=== PATIENT | female | born 1935 | race Caucasian/White ===

== ENCOUNTER 2018-01-11 12:33 | Inpatient (IN) | payer MEDICARE, MEDICAID ==
[~2018-01-11] VITALS: Ht 167.6 cm; Wt 95.5 kg
--- NOTE | ~2018-01-11 | PR ---
[place], [place] PROGRESS NOTE [facility] [id number] UNIT #: [id number] ROOM: 421 DOCTOR: MARÍA CHILD MD BIRTHDATE: [birth year] DOS: 01/13/2018 SUBJECTIVE: The patient is sitting up in bed, leaning over, appears quite tired and weak, states that she is lazy this morning. OBJECTIVE: VITAL SIGNS: Pressure is 92/54, pulse of 60, respirations 16, temperature 97.5. LUNGS: Diminished breath sounds. No wheezes, rales or rhonchi heard this morning. HEART: Regular with a systolic murmur heard pretty loud in the second space. EXTREMITIES: Without any edema. ASSESSMENT AND PLAN: 1. Congestive heart failure, acute systolic from severe left ventricular dysfunction, ejection fraction 30%. The patient is already on low dose Coreg. We will avoid lisinopril because of her renal insufficiency. 2. Severe aortic stenosis. The patient has known history of aortic stenosis, was not an operative candidate 4 years ago. Discussed with the patient's daughter and they are aware of the inoperable state, so hospice will be consulted for this patient because her overall prognosis remains poor and guarded. 3. Acute renal failure with worsening of the kidney functions on diuretics and lack of urine output is concerning. She has an indwelling Moise catheter. Renal consult was obtained. Her ultrasound was ordered, but since because of the comorbidities, the patient is no longer a candidate for surgery and I would [facility]. Social service has been consulted for hospice. MARÍA CHILD MD CM:PNTRANS [phone] MARÍA CHILD MD 01/13/18 0930 interface
--- NOTE | ~2018-01-11 | DS ---
[place], [place] DISCHARGE SUMMARY [id number] UNIT #: [id number] ROOM: 421 DOCTOR: MARÍA CHILD MD BIRTHDATE: [birth year] DOS: 01/14/2018 DIAGNOSES: 1. Acute systolic congestive heart failure. 2. Left ventricular dysfunction, ejection fraction 30%. 3. Severe aortic stenosis, inoperable. 4. Adult failure to thrive. 5. Alzheimer dementia, late onset. 6. Benign hypertension. 7. Mixed hyperlipidemia. 8. Postmenopausal osteoporosis. 9. Sepsis pattern, which is ruled out with negative blood cultures. HOSPITAL COURSE: This patient is 82 years old, presents with complaints of shortness of breath and the family stated that the patient was getting more and more confused and felt that she might have a UTI, so she was seen in the Emergency Room. Lactic acid was elevated. White cell count was normal. She did not have any fever. The patient was admitted with sepsis pattern. Blood cultures and urine cultures were ordered. Urine analysis negative, so no reflux. Blood culture was sent. CT of the chest showed congestive heart failure rather than a pneumonia pattern. An echocardiogram showed severe aortic stenosis and LV dysfunction of 30%, which is much worse from an echo done 4 years ago. The patient also developed acute kidney injury and she already has chronic kidney disease. Condition was discussed with the family members and it was decided that she be kept on hospice at the residential. The patient was discharged to [facility] today with hospice. Condition was discussed with the patient's daughter in detail. MARÍA CHILD MD CM:DISCHARG [phone] MARÍA CHILD MD 01/14/18 1410 interface
--- NOTE | ~2018-01-11 | WRIGHTHP ---
[place], [place] PATIENT HISTORY AND PHYSICAL EXAM NAME: ZEESHAN BOSS [facility] #: [id number] UNIT #: [id number] ROOM: 421 DOCTOR: MARÍA CHILD MD BIRTHDATE: [birth year] DOS: 01/11/2018 HISTORY OF PRESENT ILLNESS: The patient is 82-year-old, a resident of [facility], who was brought into the Emergency Room with complaints of change in mental status. As per the family, the patient has been more confused and has not been eating or drinking well. The patient denies having any chest pains or palpitations, does not have any fever or chills, does not have any abdominal pain. This morning, she is a little nauseous and did not want to order any food. PAST MEDICAL HISTORY: Significant for: 1. Alzheimer's dementia, late onset. 2. Adult failure to thrive. 3. Chronic UTIs, the last hospitalization was February 2014. 4. Benign hypertension. 5. Aortic stenosis. 6. Mixed hyperlipidemia. MEDICATIONS: She is on alendronate 70 once weekly, Eliquis 2.5 mg twice a day, digoxin 0.125 daily, Os-Loc with vitamin D 500 mg t.i.d., Colace 100 mg daily, Aricept 10 mg daily, oxybutynin 10 mg at bedtime. SOCIAL HISTORY: Nonsmoker, does not use any alcohol. Lives in a correction. PHYSICAL EXAMINATION: GENERAL: She is awake and alert, not oriented to time, place or person. She did not recognize me. VITAL SIGNS: Graphic trend shows blood pressure of 132/70, pulse of 80, respirations 14, afebrile. LUNGS: Clear. HEART: Regular. ABDOMEN: Obese, soft, nontender. EXTREMITIES: Trace edema bilaterally, some discoloration of both her feet, dusky in nature. ASSESSMENT AND PLAN: 1. The patient comes in with confusion, possibly from underlying urinary tract infection. Urine culture will be sent. IV antibiotics started. 2. Chronic kidney disease. The patient is on 2 different diuretics. We will hold off on diuretics for right now. Slow IV hydration was ordered. 3. Chest x-ray showing evidence of diffuse pulmonary vascular congestion with BNP of 68,000, so the fluids were held. We will do a CT of the chest to figure out whether this indeed is congestive heart failure. 4. Alzheimer's dementia, late onset. Continue medications. 5. History of atrial fibrillation, on anticoagulants, which is also continued. [place], [place] PATIENT HISTORY AND PHYSICAL EXAM NAME: ZEESHAN BOSS UNIT #: [id number] ROOM: [facility] DOCTOR: MARÍA CHILD MD BIRTHDATE: [birth year] MARÍA CHILD MD CM:HISPHYS:PATIENT HISTORY AND PHYSICAL EXAMINATION 0 MARÍA CHILD MD 01/12/1819 interface
--- NOTE | ~2018-01-11 | PR ---
[place], [place] PROGRESS NOTE [id number] UN[facility] #: [id number] ROOM: 421 DOCTOR: MARÍA CHILD MD BIRTHDATE: [birth year] DOS: 01/14/2018 SUBJECTIVE: The patient looks tired and weak, does open her eyes to call, but easily slips back into sleep. OBJECTIVE: VITAL SIGNS: Blood pressure is 99/71, pulse of 75, respirations 20, temperature 97.6. LUNGS: Diminished breath sounds. HEART: Regular. ABDOMEN: Obese. EXTREMITIES: Trace edema bilaterally. LABORATORY DATA: Digoxin was 1.76. Chest x-ray shows improvement in the CHF, but small pleural effusion seen. This was clearly not pneumonia and more of CHF pattern. CT of the abdomen and pelvis was negative except for evidence of volume overload. Ultrasound of the abdomen did show mass-like lesion in the right lower lobe, which is not described on a CT scan. Blood cultures were no bacterial growth. ASSESSMENT AND PLAN: 1. The patient with shortness of breath and acute systolic congestive heart failure from severe aortic stenosis and left ventricular dysfunction. The patient is a poor candidate for any surgery and especially with her multiple comorbidities. The patient to be kept comfortable with hospice at the custodial. 2. Chronic kidney disease with acute kidney injury. Continue low dose diuretics. Avoid too many diuretics in this patient who has severe aortic stenosis. The plan is to discharge to [facility] with hospice today. MARÍA CHILD MD CM:PNTRANS [phone] MARÍA CHILD MD 01/14/18 0846 interface
[2018-01-11 12:33] VITALS: BP 144/77
[~2018-01-11 12:33] MED LIST: AMLODIPINE/BENA1 CA2 PO; ARICEPT10 M1 PO; ASPIRIN81 M1 PO; ATIVAN1 MG PO; BACTRIM DS 8001 TA1 PO; BACTROBAN2% T; BENAZEPRIL20 MG PO; BISOPROLOL; CEFOXITIN IM; CIPROFLOXACIN500 MG PO; COUMADIN3 M1 PO; COUMADIN5 M1 PO; COUMADIN5 MG PO; DAYPRO600 M1 PO; Duoneb 3ML 3 MG/3 ML INH; EC NAPROSYN,NA500 MG PO; FENTANYL75 MCG/HR TD; FEOSOL300 MG PO; FEOSOL65 MG PO; FERROUS SULFATE50 ML PO; FERROUS SULFATE65 MG PO; FOSAMAX70 MG PO; FUROSEMIDE20 MG PO; HYDROCHLOROTHIAZIDE; HYDROCODONE BIT1 T11 PO; HYDROCODONE BIT1 T12 PO; LANOXIN0.125 MG PO; LASIX20 MG PO; LEVOFLOXACIN500 MG PO; LISINOPRIL5 MG PO; LOMOTIL 0.025 M1 TA1 PO; MYCOLOG CREAM 115 GM T; MYCOLOG-II 10001 CRE TP; NAPROXEN EC500 MG PO; OMEPRAZOLE20 MG PO; OSCAL,OYSTER S500 MG PO; OXAPROZIN600 MG PO; OXYBUTYNIN5 MG PO; PRILOSEC20 MG PO; SIMVASTATIN40 MG PO; VITAMIN D2000 IU PO; VITAMIN D50000 I2 PO; XANAX0.25 MG PO; ZIAC 2.5 MG-6.21 TAB PO; ZIAC 5 MG-6.25 M5 MG PO; ZIAC 5 MG-6.251 TAB PO; ZIAC PO; ZOFRAN ODT4 MG SL; ZOSYN 2/0.252.25 GM IV
[2018-01-11 13:12] LABS: BASO % 0.6 % (0.0-1.0); EOS # 0.1 10*3/uL (0.0-0.4); EOS % 2.8 % (1.0-4.0); HEMOGLOBIN 15.1 g/dl (12.0-16.0); LYMPH # 1.1 10*3/uL (1.3-4.4); LYMPH % 20.9 % (27.0-41.0); MEAN CELL VOLUME 86.9 fl (81.0-99.0); MEAN CORPUSCULAR HGB 26.8 pg (27.0-31.0); MEAN CORPUSCULAR HGB CONC 30.8 g/dl (33.0-37.0); MONO # 0.4 10*3/uL (0.1-1.0); MONO % 8.2 % (3.0-9.0); NEUT # 3.4 10*3/uL (2.3-7.9); NEUT % 67.3 % (47.0-73.0); PLATELET COUNT AUTOMATED 130 10*3/uL (130-400); RED BLOOD COUNT 5.64 10*6/uL (4.10-5.10); RED CELL DISTRI WIDTH 18.4 % (0-14.5)
[2018-01-11 13:22] LABS: ACT PARTIAL THROMBO TIME 31.5 SECONDS (20.8-31.5); INTERNATIONAL NORM RATIO 1.6 (2.0-3.5)
[2018-01-11 13:30] LABS: ALBUMIN 3.5 gm/dl (3.1-4.5); CREATININE 2.33 mg/dL (0.55-1.02); POTASSIUM 4.1 mmol/L (3.5-5.1); TOTAL PROTEIN 7.9 gm/dL (6.4-8.2)
[2018-01-11 13:31] LABS: TROPONIN I 0.023 ng/ml (<0.045)
[2018-01-11 14:01] LABS: BILIRUBIN 1+ (NEGATIVE); BLOOD NEGATIVE (NEGATIVE); CLARITY CLOUDY (CLEAR); COLOR YELLOW (YELLOW); GLUCOSE NEGATIVE (NEGATIVE); KETONE NEGATIVE (NEGATIVE); LEUKO ESTERASE NEGATIVE (NEGATIVE); NITRITE NEGATIVE (NEGATIVE); SPECIFIC GRAVITY >= 1.030 (1.005-1.030)
[2018-01-11 14:11] LABS: BACTERIA TRACE; HYALINE CAST TNTC; RBC 0-2 rbc/hpf (0-2); WBC 0-2 wbc/hpf (0-5)
[2018-01-11 14:35] VITALS: BP 137/89
[2018-01-11] MEDS ORDERED: MAPAP500 M1 PO (15:25)
[2018-01-11] MEDS ORDERED: DOCUSATE SODIU100 M2 PO (15:26)
[2018-01-11] MEDS ORDERED: ELIQUIS2.5 M1 PO (15:28)
[2018-01-11] MEDS ORDERED: OCUVITE EYE +1 EACH PO (15:29)
[2018-01-11] MEDS ORDERED: OSCAL/D,OYSTER250 MG PO (15:30)
[2018-01-11] MEDS ORDERED: OXYBUTYNIN CHLO10 MG PO (15:31)
[2018-01-11 16:00] VITALS: BP 90/68
[2018-01-11 20:00] VITALS: BP 98/56
[2018-01-12] VITALS: BP 94/55
[2018-01-12 06:28] LABS: BASO % 0.5 % (0.0-1.0); EOS % 0.3 % (1.0-4.0); HEMATOCRIT 45.9 % (37.0-47.0); HEMOGLOBIN 14.5 g/dl (12.0-16.0); LYMPH # 0.8 10*3/uL (1.3-4.4); LYMPH % 11.3 % (27.0-41.0); MEAN CELL VOLUME 86.1 fl (81.0-99.0); MEAN CORPUSCULAR HGB 27.2 pg (27.0-31.0); MEAN CORPUSCULAR HGB CONC 31.6 g/dl (33.0-37.0); MEAN PLATELET VOLUME 12.1 fl (9.6-12.3); MONO # 0.8 10*3/uL (0.1-1.0); MONO % 12.7 % (3.0-9.0); NEUT % 74.9 % (47.0-73.0); NUCLEATED RED BLOOD CELL 0.3 % (0.0-0.0); PLATELET COUNT AUTOMATED 136 10*3/uL (130-400); RED BLOOD COUNT 5.33 10*6/uL (4.10-5.10); RED CELL DISTRI WIDTH 18.6 % (0-14.5); WHITE BLOOD COUNT 6.6 10*3/uL (4.8-10.8)
[2018-01-12 06:54] LABS: CREATININE 2.53 mg/dL (0.55-1.02)
[2018-01-12 08:00] VITALS: BP 142/90
[2018-01-12 12:00] VITALS: BP 111/64
[2018-01-12 16:00] VITALS: BP 117/76
[2018-01-12 20:00] VITALS: BP 101/76
[2018-01-13] VITALS: BP 92/54
[2018-01-13 06:50] LABS: BASO % 0.5 % (0.0-1.0); EOS % 0.5 % (1.0-4.0); HEMATOCRIT 44.1 % (37.0-47.0); HEMOGLOBIN 13.6 g/dl (12.0-16.0); LYMPH # 0.8 10*3/uL (1.3-4.4); LYMPH % 11.7 % (27.0-41.0); MEAN CELL VOLUME 87.5 fl (81.0-99.0); MEAN CORPUSCULAR HGB CONC 30.8 g/dl (33.0-37.0); MEAN PLATELET VOLUME 11.5 fl (9.6-12.3); MONO # 0.7 10*3/uL (0.1-1.0); MONO % 10.6 % (3.0-9.0); NEUT # 4.9 10*3/uL (2.3-7.9); NEUT % 75.9 % (47.0-73.0); NUCLEATED RED BLOOD CELL 0.5 % (0.0-0.0); PLATELET COUNT AUTOMATED 126 10*3/uL (130-400); RED BLOOD COUNT 5.04 10*6/uL (4.10-5.10); RED CELL DISTRI WIDTH 18.6 % (0-14.5); WHITE BLOOD COUNT 6.5 10*3/uL (4.8-10.8)
[2018-01-13 07:02] LABS: CREATININE 3.4 mg/dL (0.55-1.02); POTASSIUM 5.1 mmol/L (3.5-5.1)
[2018-01-13 08:00] VITALS: BP 93/59
[2018-01-13 08:40] VITALS: BP 90/60
[2018-01-13 12:00] VITALS: BP 93/59
[2018-01-13 16:00] VITALS: BP 103/75
[2018-01-13 20:00] VITALS: BP 109/76
[2018-01-14] VITALS: BP 99/71
[2018-01-14 08:00] VITALS: BP 99/71
[2018-01-14] MEDS ORDERED: CEFUROXIME AXE250 MG PO (08:05)
== END 2018-01-14 10:28 | disposition hospice, home (50) | DRG 682 ==
LOC: ED 12:33 → EDHOLD 14:20 → 4E 14:20
PROVIDERS: Emergency Medicine; Internal Medicine
DX: N17.9 Acute kidney failure, unspecified (principal); I50.21 Acute systolic (congestive) heart failure; E87.2 Acidosis; I48.91 Unspecified atrial fibrillation; E86.0 Dehydration; G30.1 Alzheimer's disease with late onset; I35.0 Nonrheumatic aortic (valve) stenosis; I44.7 Left bundle-branch block, unspecified; F02.80 Dementia in other diseases classified elsewhere, unspecified severity, without behavioral disturbance, psychotic disturbance, mood disturbance, and anxiety; E78.2 Mixed hyperlipidemia; I13.0 Hypertensive heart and chronic kidney disease with heart failure and stage 1 through stage 4 chronic kidney disease, or unspecified chronic kidney disease; N39.0 Urinary tract infection, site not specified; Z66 Do not resuscitate; Z51.5 Encounter for palliative care; M81.0 Age-related osteoporosis without current pathological fracture; N18.9 Chronic kidney disease, unspecified; R62.7 Adult failure to thrive; Z79.899 Other long term (current) drug therapy; Z79.01 Long term (current) use of anticoagulants; Z99.3 Dependence on wheelchair; Z83.3 Family history of diabetes mellitus; Z82.49 Family history of ischemic heart disease and other diseases of the circulatory system; Z82.3 Family history of stroke